=== PATIENT | female | born 1980 | race American Indian/Alaskan Native ===

== ENCOUNTER 2017-10-11 10:58 | Emergency (ER) | payer SELFPAY ==
[2017-10-11 12:04] VITALS: BP 124/74
[2017-10-11] MEDS ORDERED: MOTRIN PO ONE (15:04)
--- NOTE | 2017-10-11 15:06 | Emergency Department Report ---
Blank Doc - Documentation Documentation: Patient is a 36-year-old female who is presenting with 3 weeks of headache. Patient states the headache is only on the right side near the faith and radiates to the ear. Patient denies any light sensitivity and nausea vomiting to Bhavya congestion at this time. Patient states headaches are worse when she wakes up in the morning. Patient had a CT head done to establish a baseline patient was giv medicines for pain.
[2017-10-11 16:54] LABS: Bacteria,Urine 1+ /HPF (Negative); Bilirubin,Urine NEG (Negative); Blood,Urine NEG (Negative); Color,Urine Yellow (Yellow); Mucus,Urine 1+ /HPF; Protein,Urine <15 mg/dL mg/dL (Negative)
[2017-10-11 16:56] LABS: HCG Qualitative,Urine Negative (Negative)
--- NOTE | 2017-10-11 18:19 | Cat Scan Report ---
FINAL REPORT EXAM: CT HEAD/BRAIN WO CON HISTORY: headache TECHNIQUE: CT of the head was performed without intravenous contrast. PRIORS: None. FINDINGS: The ventricles are normal in shape and position. The ventricles are nondilated. No intracranial hemorrhage, mass, mass effect, midline shift or evidence of acute ischemic infarct. The basilar cisterns are patent. The paranasal sinuses are clear. The extracranial soft tissues demonstrate no abnormality. The calvarium is intact. The orbits are intact. The mastoid air cells are clear. IMPRESSION: No acute intracranial abnormality.
--- NOTE | 2017-10-11 19:01 | Emergency Department Report ---
ED Headache HPI - General Chief Complaint: Headache Stated Complaint: HEADACHE Time Seen by Provider: 10/11/17 15:03 - History of Present Illness Initial Comments: This is a 36-year-old female nontoxic, well nourished in appearance, no acute signs of distress presents to the ED with c/o of acute on chronic intermittent headache 3 weeks. Patient describes headache on the right side temporal region that radiates towards her ear. Patient denies any trauma to the region. Patient stated that darkness makes headache subside and weakness makes it worse. Patient stated that the headache is subsided with taking Excedrin over- the-count. Patient denies thunderclap headache. Patient stated headache mostly occurs when she wakes up and is relieved throughout the day. Denies any visual changes or blurry vision. Patient denies any stiff neck, fever, chills, chest pain, shortness of breathe, numbness, tingling, abdominal pain. Patient denies any allergies or significant past medical history. Timing/Duration: other (3 weeks) Quality: mild, achy Head Injury Location: temporal Recent Head Trauma: no recent headache/trauma, frequent headaches Associated Symptoms: denies: confusion, fatigue, facial pain, fever/chills, flushing, loss of consciousness, nausea/vomiting, nasal congestion, nasal drainage, numbness in legs/feet, rash, seizures, sinus infection, stiff neck, vision changes, weakness Allergies/Adverse Reactions: Allergies No Known Allergies Allergy (Unverified 10/31/13 09:05) Home Medications: Ambulatory Orders HYDROcodone/APAP 5-325 [[place] 5/325 mg] 1 each PO Q6HR PRN #20 tablet 10/31/13 Ibuprofen [Motrin] 600 mg PO Q8H PRN #60 tablet 10/31/13 Amoxicillin [Trimox CAP] 1,000 mg PO Q8H #60 capsule 09/17/14 Ibuprofen [Motrin 600 MG tab] 600 mg PO Q8H PRN #30 tablet 09/17/14 Neomycin Crawford/Colist/Hc/Thonzon [Cortisporin-Tc Ear Susp 0.33/0.3/1/0.05%] 4 drop AU QID #1 bottle 09/17/14 Butalb/Acetamin/Caff 50-325-40 [Fioricet] 1 tab PO Q6HR PRN #20 tab 10/11/17 ED Review of Systems ROS: Stated complaint: HEADACHE Other details as noted in HPI Constitutional: denies: chills, fever Eyes: denies: eye pain, eye discharge, vision change ENT: denies: ear pain, throat pain Respiratory: denies: cough, shortness of breath, wheezing Cardiovascular: denies: chest pain, palpitations Endocrine: no symptoms reported Gastrointestinal: denies: abdominal pain, nausea, diarrhea Genitourinary: denies: urgency, dysuria, discharge Musculoskeletal: denies: back pain, joint swelling, arthralgia Skin: denies: rash, lesions Neurological: headache. denies: weakness, paresthesias Psychiatric: denies: anxiety, depression Hematological/Lymphatic: denies: easy bleeding, easy bruising ED Past Medical Hx - Past Medical History Previous Medical History?: No - Surgical History Past Surgical History?: Yes Additional Surgical History: tubal ligation - Social History Smoking Status: Never Smoker Substance Use Type: None - Medications Home Medications: Home Medications Medication Instructions Recorded Confirmed Last Taken Type HYDROcodone/APAP 5-325 [[place] 1 each PO Q6HR PRN #20 tablet 10/31/13 Unknown Rx 5/325 mg] Ibuprofen [Motrin] 600 mg PO Q8H PRN #60 tablet 10/31/13 Unknown Rx Amoxicillin [Trimox CAP] 1,000 mg PO Q8H #60 capsule 09/17/14 Unknown Rx Ibuprofen [Motrin 600 MG tab] 600 mg PO Q8H PRN #30 tablet 09/17/14 Unknown Rx Neomycin Crawford/Colist/Hc/Thonzon 4 drop AU QID #1 bottle 09/17/14 Unknown Rx [Cortisporin-Tc Ear Susp 0.33/0.3/1/0.05%] Butalb/Acetamin/Caff 50-325-40 1 tab PO Q6HR PRN #20 tab 10/11/17 Unknown Rx [Fioricet] ED Physical Exam - General Limitations: No Limitations General appearance: alert, in no apparent distress - Head Head exam: Present: atraumatic, normocephalic - Eye Eye exam: Present: normal appearance, PERRL, EOMI Pupils: Present: normal accommodation - ENT ENT exam: Present: normal exam, normal orophraynx, mucous membranes moist, TM's normal bilaterally, normal external ear exam - Neck Neck exam: Present: normal inspection, full ROM. Absent: tenderness, meningismus, lymphadenopathy, thyromegaly - Respiratory Respiratory exam: Present: normal lung sounds bilaterally. Absent: respiratory distress, wheezes, rales, rhonchi, stridor, chest wall tenderness, accessory muscle use, decreased breath sounds, prolonged expiratory - Cardiovascular Cardiovascular Exam: Present: regular rate, normal rhythm, normal heart sounds. Absent: bradycardia, tachycardia, irregular rhythm, systolic murmur, diastolic murmur, rubs, gallop - GI/Abdominal GI/Abdominal exam: Present: soft, normal bowel sounds. Absent: distended, tenderness, guarding, rebound, rigid, diminished bowel sounds - Rectal Rectal exam: Present: deferred - Extremities Exam Extremities exam: Present: normal inspection, full ROM, normal capillary refill. Absent: tenderness, pedal edema, joint swelling, calf tenderness - Back Exam Back exam: Present: normal inspection, full ROM. Absent: tenderness, CVA tenderness (R), CVA tenderness (L), muscle spasm, paraspinal tenderness, vertebral tenderness, rash noted - Neurological Exam Neurological exam: Present: alert, oriented X3, CN II-XII intact, normal gait, reflexes normal - Expanded Neurological Exam Expanded Patient oriented to: Present: person, place, time Cranial nerves: EOM's Intact: Normal, Gag Reflex: Normal, Tongue Deviation: Normal, Nystagmus: Normal, Facial Sensation: Normal, Facial Palsy with Forehead Movement: Normal, Facial Palsy without Forehead Movement: Normal Cerebellar function: Finger to Nose: Normal, Heel to Tyler: Normal, Romberg: Normal Upper motor neuron: Raul Neglect: Normal, Pronator Drift: Normal, Babinski Sign : Normal, Sensory Extinction: Normal Sensory exam: Upper Extremity Light Touch: Normal, Upper Extremity Pin Prick: Normal, Upper Extremity Temperature: Normal, UE 2 Point Discrimination: Normal, Lower Extremity Light Touch: Normal, Lower Extremity Pin Prick: Normal, Lower Extremity Temperature: Normal, LE 2 Point Discrimination: Normal Motor strength exam: RUE: 5, LUE: 5, RLE: 5, LLE: 5 DTR: bicep (R): 2+, bicep (L): 2+, tricep (R): 2+, tricep (L): 2+, knee (R): 2+ , knee (L): 2+, ankle (R): 2+, ankle (L): 2+ Best Eye Response (Ghent): (4) open spontaneously Best Motor Response (Terry): (6) obeys commands Best Verbal Response ([place]): (5) oriented Terry Total: 15 - Psychiatric Psychiatric exam: Present: normal affect, normal mood - Skin Skin exam: Present: warm, dry, intact, normal color. Absent: rash ED Course Vital Signs 10/11/17 10/11/17 12:00 15:15 Temperature 98.9 F Pulse Rate 72 Respiratory 16 18 Rate Blood Pressure 124/74 O2 Sat by Pulse 99 Oximetry - Reevaluation(s) Reevaluation #1: 10/11/17 19:03 Patient is speaking in full sentences with no signs of distress noted. - Consultations Consultation #1: 10/11/17 19:03 Patient has been consulted with Dr. Mai about patient history, physical exam , and labs and examined and screened patient and agrees to ED plan of care and discharge plan of care. ED Medical Decision Making - Medical Decision Making This is a 36-year-old female that presents with headache intermittent. Patient is stable and was examined by me and Dr. Mai. CT of head/brain obtained and dictated by radiologist within normal limits. Patient is notified of ct results with no questions noted by the patient. Patient received Motrin in the ED which persisted symptoms has improvement subsided. Upon examination patient is neurologically stable. Patient is discharged with Fioricet. Patient was instructed and referred to Follow-up with a neurologist doctor in 3-5 days or if symptoms worsen and continue return to emergency room as soon as possible. At time of discharge, the patient does not seem toxic or ill in appearance. No acute signs of distress noted. Patient agrees to discharge treatment plan of care. No further questions noted by the patient. Critical care attestation.: If time is entered above; I have spent that time in minutes in the direct care of this critically ill patient, excluding procedure time. ED Disposition Clinical Impression: Headache Qualifiers: Headache type: unspecified Headache chronicity pattern: episodic headache Intractability: not intractable Qualified Code(s): R51 - Headache Disposition: DC-01 TO HOME OR SELFCARE Is pt being admited?: No Does the pt Need Aspirin: No Condition: Stable Instructions: Acute Headache (ED), Butalbital/Aspirin/Caffeine (By mouth) Additional Instructions: Follow-up with a neurologist doctor in 3-5 days or if symptoms worsen and continue return to emergency room as soon as possible. Prescriptions: Butalb/Acetamin/Caff 50-325-40 [Fioricet] 1 tab PO Q6HR PRN #20 tab PRN Reason: Headache Referrals: PRIMARY CARE, [Primary Care Provider] - 3-5 Days [facility] MD [Staff Physician] - 3-5 Days [facility] [Outside] - 3-5 Days [facility] [Outside] - 3-5 Days Forms: Work/School Release Form(ED)
== END 2017-10-11 19:14 | disposition home or self-care (01) ==
LOC: ED 10:58
DX: R51 Headache (principal); G89.29 Other chronic pain; Z98.51 Tubal ligation status
CPT/HCPCS: 70450; 81001; 81025

== ENCOUNTER 2020-04-17 09:17 | Emergency (ER) | payer SELFPAY ==
[2020-04-17 09:24] VITALS: BP 116/71
--- NOTE | 2020-04-17 10:46 | Emergency Department Report ---
ED ENT HPI - General Chief complaint: Earache Stated complaint: EAR INFECTION BOTH Time Seen by Provider: 04/17/20 10:29 Source: patient Mode of arrival: Ambulatory Limitations: No Limitations - History of Present Illness Initial comments: 39-year-old -[place] female presents to the emergency room complaining of left ear pain x3 days patient reports she is usually followed by [facility] on [facility] but they did not have any appointments available. Patient reports she has a past medical history of ear infections. She curre ntly takes only vitamins and has no known drug allergies. Onset/Timin -: days(s) Location: L ear Severity: moderate Quality: stabbing, sharp Consistency: constant Improves with: none Worsens with: none - Related Data Previous Rx's Medication Instructions Recorded Last Taken Type HYDROcodone/APAP 5-325 [[place] 1 each PO Q6HR PRN #20 tablet 10/31/13 Unknown Rx 5/325 mg] Ibuprofen [Motrin] 600 mg PO Q8H PRN #60 tablet 10/31/13 Unknown Rx Amoxicillin [Trimox CAP] 1,000 mg PO Q8H #60 capsule 09/17/14 Unknown Rx Neomycin Crawford/Colist/Hc/Thonzon 4 drop AU QID #1 bottle 09/17/14 Unknown Rx [Cortisporin-Tc Ear Susp 0.33/0.3/1/0.05%] Butalb/Acetamin/Caff 50-325-40 1 tab PO Q6HR PRN #20 tab 10/11/17 Unknown Rx [Fioricet] Amoxicillin [Amoxicillin TAB] 875 mg PO BID 7 Days #14 tablet 04/17/20 Unknown Rx Ibuprofen [Motrin 600 MG tab] 600 mg PO Q8H PRN #30 tablet 04/17/20 Unknown Rx Neomyc/Colist/Hydrocort/Thonzn 1 drop QID #1 bottle 04/17/20 Unknown Rx [Cortisporin-Tc Ear Suspension] Allergies Allergy/AdvReac Type Severity Reaction Status Date / Time No Known Allergies Allergy Unverified 10/31/13 09:05 ED Dental HPI - General Chief complaint: Earache Stated complaint: EAR INFECTION BOTH Time Seen by Provider: 04/17/20 10:29 Source: patient Mode of arrival: Ambulatory Limitations: No Limitations - Related Data Previous Rx's Medication Instructions Recorded Last Taken Type HYDROcodone/APAP 5-325 [[place] 1 each PO Q6HR PRN #20 tablet 10/31/13 Unknown Rx 5/325 mg] Ibuprofen [Motrin] 600 mg PO Q8H PRN #60 tablet 10/31/13 Unknown Rx Amoxicillin [Trimox CAP] 1,000 mg PO Q8H #60 capsule 09/17/14 Unknown Rx Neomycin Crawford/Colist/Hc/Thonzon 4 drop AU QID #1 bottle 09/17/14 Unknown Rx [Cortisporin-Tc Ear Susp 0.33/0.3/1/0.05%] Butalb/Acetamin/Caff 50-325-40 1 tab PO Q6HR PRN #20 tab 10/11/17 Unknown Rx [Fioricet] Amoxicillin [Amoxicillin TAB] 875 mg PO BID 7 Days #14 tablet 04/17/20 Unknown Rx Ibuprofen [Motrin 600 MG tab] 600 mg PO Q8H PRN #30 tablet 04/17/20 Unknown Rx Neomyc/Colist/Hydrocort/Thonzn 1 drop QID #1 bottle 04/17/20 Unknown Rx [Cortisporin-Tc Ear Suspension] Allergies Allergy/AdvReac Type Severity Reaction Status Date / Time No Known Allergies Allergy Unverified 10/31/13 09:05 ED Review of Systems ROS: Stated complaint: EAR INFECTION BOTH Other details as noted in HPI Comment: All other systems reviewed and negative ED Past Medical Hx - Past Medical History Previous Medical History?: No - Surgical History Past Surgical History?: Yes Additional Surgical History: tubal ligation - Social History Smoking Status: Never Smoker Substance Use Type: None - Medications Home Medications: Home Medications Medication Instructions Recorded Confirmed Last Taken Type HYDROcodone/APAP 5-325 [[place] 1 each PO Q6HR PRN #20 tablet 10/31/13 Unknown Rx 5/325 mg] Ibuprofen [Motrin] 600 mg PO Q8H PRN #60 tablet 10/31/13 Unknown Rx Amoxicillin [Trimox CAP] 1,000 mg PO Q8H #60 capsule 09/17/14 Unknown Rx Neomycin Crawford/Colist/Hc/Thonzon 4 drop AU QID #1 bottle 09/17/14 Unknown Rx [Cortisporin-Tc Ear Susp 0.33/0.3/1/0.05%] Butalb/Acetamin/Caff 50-325-40 1 tab PO Q6HR PRN #20 tab 10/11/17 Unknown Rx [Fioricet] Amoxicillin [Amoxicillin TAB] 875 mg PO BID 7 Days #14 tablet 04/17/20 Unknown Rx Ibuprofen [Motrin 600 MG tab] 600 mg PO Q8H PRN #30 tablet 04/17/20 Unknown Rx Neomyc/Colist/Hydrocort/Thonzn 1 drop QID #1 bottle 04/17/20 Unknown Rx [Cortisporin-Tc Ear Suspension] ED Physical Exam - General Limitations: No Limitations General appearance: alert, in no apparent distress - Head Head exam: Present: atraumatic, normocephalic - Eye Eye exam: Present: normal appearance - Expanded ENT Exam Expanded TM/Canal exam: Erythema: Left TM, Loss of Landmarks: Left TM, Canal Discharge: Left TM, Canal Tenderness: Left TM - Back Exam Back exam: Present: normal inspection - Neurological Exam Neurological exam: Present: alert, oriented X3, normal gait - Psychiatric Psychiatric exam: Present: normal affect, normal mood - Skin Skin exam: Present: warm, dry, intact, normal color. Absent: rash ED Course Vital Signs 04/17/20 09:23 Temperature 98.1 F Pulse Rate 80 Respiratory 16 Rate Blood Pressure 116/71 [Right] O2 Sat by Pulse 98 Oximetry ED Medical Decision Making - Medical Decision Making 39-year-old -[place] female presents to the emergency room complaining of left ear pain x3 days patient reports she is usually followed by [facility] on [facility] but they did not have any appointments available. Patient reports she has a past medical history of ear infections. She currently takes only vitamins and has no known drug allergies. Patient has a left otitis externa and media will place on amoxicillin and Cortisporin eardrops patient can take ibuprofen or Tylenol for pain management. Critical care attestation.: If time is entered above; I have spent that time in minutes in the direct care of this critically ill patient, excluding procedure time. ED Disposition Clinical Impression: Left otitis media Qualifiers: Otitis media type: unspecified Qualified Code(s): H66.92 - Otitis media, unspecified, left ear Left otitis externa Qualifiers: Otitis externa type: unspecified type Chronicity: acute Qualified Code(s): H60.502 - Unspecified acute noninfective otitis externa, left ear Disposition: DC-01 TO HOME OR SELFCARE Is pt being admited?: No Does the pt Need Aspirin: No Condition: Stable Instructions: Otitis Media (ED), Otitis Externa (ED) Additional Instructions: Complete antibiotics as prescribed. Take pain medication as needed follow-up with the ear nose and throat provider. Prescriptions: Amoxicillin [Amoxicillin TAB] 875 mg PO BID 7 Days #14 tablet Neomyc/Colist/Hydrocort/Thonzn [Cortisporin-Tc Ear Suspension] 1 drop QID #1 bottle Ibuprofen [Motrin 600 MG tab] 600 mg PO Q8H PRN #30 tablet PRN Reason: Pain Referrals: PRIMARY CARE,MD [Primary Care Provider] - 3-5 Days [facility] [Provider Group] - 3-5 Days [facility] [Provider Group] - 3-5 Days [facility] [Provider Group] - 3-5 Days
== END 2020-04-17 11:01 | disposition home or self-care (01) ==
LOC: ED 09:17
DX: H66.92 Otitis media, unspecified, left ear (principal); H60.92 Unspecified otitis externa, left ear; Z98.51 Tubal ligation status; Z79.1 Long term (current) use of non-steroidal anti-inflammatories (NSAID); Z79.2 Long term (current) use of antibiotics; Z79.899 Other long term (current) drug therapy
CPT/HCPCS: 99282

== ENCOUNTER 2021-03-12 19:38 | Emergency (ER) | payer SELFPAY ==
[2021-03-12 23:31] VITALS: BP 146/92
--- NOTE | 2021-03-12 23:55 | Emergency Department Report ---
Chief Complaint: Skin Rash Stated Complaint: BODY RASH Time Seen by Provider: 03/12/21 23:51 - HPI History of Present Illness: 40-year-old -[place]onegas[place] female presents to the emergency room complaining of a rash that she has had for 2 days. Patient states she has taken Benadryl which she reports has not really helped. Patient reports that the rash itches and is located on her upper extremities. Patient also comes in complain of a slight headache and nausea no vomiting did report diarrhea. Has not been vaccinated and has not been Covid tested. Patient recently traveled. Patient has not taken anything for her symptoms. - Exam Vital Signs: Vital Signs 03/12/21 22:53 Temperature 98.2 F Pulse Rate 59 L Respiratory 18 Rate Blood Pressure 146/92 O2 Sat by Pulse 100 Oximetry Physical Exam: General: Awake, appropriately interactive, no acute distress. Neck: Supple. Full range of motion intact. Cardiovascular: Normal peripheral perfusion. Pulmonary: No respiratory distress. Patient is speaking normally without use of accessory muscles. Skin: Small erythematous lesions upper extremities and left shoulder no blistering no weeping. Neurological: No facial asymmetry. Speech is clear. Follows commands. Patient is alert and oriented. Musculoskeletal: Full range of motion, no crepitus. Able to bear weight and ambulate without difficulty. Distal neurovascular and motor/sensory function is intact. Psych: Cooperative. Appropriate mood and affect. MSE screening note: Focused history and physical exam performed. Due to findings the following was ordered: 40-year-old -[place] female presents to the emergency room complaining of a rash that she has had for 2 days. Patient states she has taken Benadryl which she reports has not really helped. Patient reports that the rash itches and is located on her upper extremities. Patient also comes in complain of a slight headache and nausea no vomiting did report diarrhea. Has not been vaccinated and has not been Covid tested. Patient recently traveled. Patient has not taken anything for her symptoms. Discussed with patient she can take Tylenol or ibuprofen for headache. Rash she can use [id number] hydrocortisone continue with Benadryl follow-up with your primary care provider. Patient has all stable vital signs nontoxic in appearance stable to be discharged home with follow-up outpatient. Encouraged to get Covid vaccination as well as Covid testing ED Disposition for MSE Is pt being admited?: No Does the pt Need Aspirin: No Condition: Stable Referrals: [facility] [Provider Group] - 3-5 Days Time of Disposition: 23:55
== END 2021-03-13 00:06 | disposition left against medical advice (07) ==
LOC: ED 19:38
DX: R21 Rash and other nonspecific skin eruption (principal); L29.9 Pruritus, unspecified; Z53.21 Procedure and treatment not carried out due to patient leaving prior to being seen by health care provider

== ENCOUNTER 2021-12-19 21:22 | Emergency (ER) | payer OTHER ==
--- NOTE | 2021-12-19 22:17 | XRay Report ---
RIGHT FOOT 3 VIEW(S) INDICATION / CLINICAL INFORMATION: INJURY COMPARISON: None available. FINDINGS: BONES / JOINT(S): Acute mildly displaced comminuted intra-articular fracture base of fourth toe proxi mal phalanx extending into MTP joint Moderate degenerative arthrosis first MTP joint with hallux valg us and osseous bunion SOFT TISSUES: No significant abnormality. ADDITIONAL FINDINGS: None. IMPRESSION: 1. Intra-articular fracture base of fourth toe proximal phalanx Signer Name: Rafa Valente MD Signed: 12/19/2021 10:13 PM Workstation Name: [id number]
--- NOTE | 2021-12-20 02:18 | Emergency Department Report ---
ED Extremity Problem HPI - General Chief complaint: Extremity Injury, Lower Stated complaint: RT FOOT PAIN Source: patient Mode of arrival: Ambulatory Limitations: No Limitations - History of Present Illness Initial comments: 41-year-old female complaining of right toe pain after slipping and falling over her toys. Patient states that for toe is hurting currently a 8 out of 10. Patient is able to wiggle toe but with pain. Patient is ambulating with pain. Mild swelling noted to the fourth toe. No distracting injury noted. Patient denies any fever. Patient is alert and oriented x3. No acute distress noted. No ill ill appearance noted. MD Complaint: extremity pain -: This morning Location: right History of Same: No Severity scale (0 -10): 8 Quality: aching Consistency: intermittent Improves with: nothing - Related Data Previous Rx's Medication Instructions Recorded Last Taken Type HYDROcodone/APAP 5-325 [Clare 1 each PO Q6HR PRN #20 tablet 10/31/13 Unknown Rx 5/325 mg] Ibuprofen [Motrin] 600 mg PO Q8H PRN #60 tablet 10/31/13 Unknown Rx Amoxicillin [Trimox CAP] 1,000 mg PO Q8H #60 capsule 09/17/14 Unknown Rx Neomycin Crawford/Colist/Hc/Thonzon 4 drop AU QID #1 bottle 09/17/14 Unknown Rx [Cortisporin-Tc Ear Susp 0.33/0.3/1/0.05%] Butalb/Acetamin/Caff 50-325-40 1 tab PO Q6HR PRN #20 tab 10/11/17 Unknown Rx [Fioricet] Amoxicillin [Amoxicillin TAB] 875 mg PO BID 7 Days #14 tablet 04/17/20 Unknown Rx Ibuprofen [Motrin 600 MG tab] 600 mg PO Q8H PRN #30 tablet 04/17/20 Unknown Rx Neomyc/Colist/Hydrocort/Thonzn 1 drop QID #1 bottle 04/17/20 Unknown Rx [Cortisporin-Tc Ear Suspension] Ibuprofen [Motrin] 800 mg PO Q8HR PRN 15 Days #30 12/20/21 Unknown Rx tablet traMADoL [Ultram] 50 mg PO Q6HR PRN 3 Days #12 tablet 12/20/21 Unknown Rx Allergies Allergy/AdvReac Type Severity Reaction Status Date / Time No Known Allergies Allergy Unverified 10/31/13 09:05 ED Review of Systems ROS: Stated complaint: RT FOOT PAIN Other details as noted in HPI Constitutional: denies: chills, fever Eyes: denies: eye pain, eye discharge, vision change ENT: denies: ear pain, throat pain Respiratory: denies: cough, shortness of breath, wheezing Cardiovascular: denies: chest pain, palpitations Endocrine: no symptoms reported Gastrointestinal: denies: abdominal pain, nausea, diarrhea Genitourinary: denies: urgency, dysuria, discharge Musculoskeletal: denies: back pain, joint swelling, arthralgia Skin: denies: rash, lesions Neurological: denies: headache, weakness, paresthesias Psychiatric: denies: anxiety, depression Hematological/Lymphatic: denies: easy bleeding, easy bruising ED Past Medical Hx - Surgical History Additional Surgical History: tubal ligation - Social History Smoking Status: Never Smoker Substance Use Type: None - Medications Home Medications: Home Medications Medication Instructions Recorded Confirmed Last Taken Type HYDROcodone/APAP 5-325 [Clare 1 each PO Q6HR PRN #20 tablet 10/31/13 Unknown Rx 5/325 mg] Ibuprofen [Motrin] 600 mg PO Q8H PRN #60 tablet 10/31/13 Unknown Rx Amoxicillin [Trimox CAP] 1,000 mg PO Q8H #60 capsule 09/17/14 Unknown Rx Neomycin Crawford/Colist/Hc/Thonzon 4 drop AU QID #1 bottle 09/17/14 Unknown Rx [Cortisporin-Tc Ear Susp 0.33/0.3/1/0.05%] Butalb/Acetamin/Caff 50-325-40 1 tab PO Q6HR PRN #20 tab 10/11/17 Unknown Rx [Fioricet] Amoxicillin [Amoxicillin TAB] 875 mg PO BID 7 Days #14 tablet 04/17/20 Unknown Rx Ibuprofen [Motrin 600 MG tab] 600 mg PO Q8H PRN #30 tablet 04/17/20 Unknown Rx Neomyc/Colist/Hydrocort/Thonzn 1 drop QID #1 bottle 04/17/20 Unknown Rx [Cortisporin-Tc Ear Suspension] Ibuprofen [Motrin] 800 mg PO Q8HR PRN 15 Days #30 12/20/21 Unknown Rx tablet traMADoL [Ultram] 50 mg PO Q6HR PRN 3 Days #12 tablet 12/20/21 Unknown Rx ED Physical Exam - General Limitations: No Limitations General appearance: alert, in no apparent distress - Head Head exam: Present: atraumatic, normocephalic - Eye Eye exam: Present: normal appearance - ENT ENT exam: Present: mucous membranes moist - Neck Neck exam: Present: normal inspection - Respiratory Respiratory exam: Present: normal lung sounds bilaterally. Absent: respiratory distress - Cardiovascular Cardiovascular Exam: Present: regular rate, normal rhythm. Absent: systolic murmur, diastolic murmur, rubs, gallop - GI/Abdominal GI/Abdominal exam: Present: soft, normal bowel sounds - Extremities Exam Extremities exam: Present: normal inspection - Expanded Lower Extremity Exam Right Foot/Toe exam: Present: swelling - Back Exam Back exam: Present: normal inspection - Neurological Exam Neurological exam: Present: alert, oriented X3 - Psychiatric Psychiatric exam: Present: normal affect, normal mood - Skin Skin exam: Present: warm, dry, intact, normal color. Absent: rash ED Course Vital Signs 12/19/21 12/20/21 21:30 02:32 Temperature 98.0 F 97.8 F Pulse Rate 75 66 Respiratory 18 14 Rate Blood Pressure 118/88 Blood Pressure 126/79 [Left] O2 Sat by Pulse 96 100 Oximetry ED Medical Decision Making - Radiology Data [facility] [address] [place] [address] XRay Report Signed Patient: JESSICA NARAYAN MR#: [id number] : 1980 Acct:[id number] Age/Sex: 41 / F ADM Date: 12/19/21 Loc: ED Attending Dr: Ordering Physician: EMORY LIANG MD Date of Service: 12/19/21 Procedure(s): XR foot 3+V RT Accession Number(s): [id number] cc: EMORY LIANG MD Fluoro Time In Minutes: RIGHT FOOT 3 VIEW(S) INDICATION / CLINICAL INFORMATION: INJURY COMPARISON: None available. FINDINGS: BONES / JOINT(S): Acute mildly displaced comminuted intra-articular fracture base of fourth toe proximal phalanx extending into MTP joint Moderate degenerative arthrosis first MTP joint with hallux valgus and osseous bunion SOFT TISSUES: No significant abnormality. ADDITIONAL FINDINGS: None. IMPRESSION: 1. Intra-articular fracture base of fourth toe proximal phalanx Signer Name: Rafa Valente MD Signed: 12/19/2021 10:13 PM Workstation Name: [id number] Transcribed By: TL Dictated By: Rafa Valente MD Electronically Authenticated By: Rafa Valente MD Signed Date/Time: 12/19/21 2213 - Medical Decision Making 41-year-old female complaining of right toe pain after slipping and falling over her toys. Patient states that for toe is hurting currently a 6 out of 10. Patient is able to wiggle toe but with pain. Patient is ambulating with pain. Mild swelling noted to the fourth toe. No distracting injury noted. Patient denies any fever. Patient is alert and oriented x3. No acute distress noted. No ill ill appearance noted. Three-view x-ray of the right foot show Intra- articular fracture base of fourth toe proximal phalanx . Patient placed in orthopedic shoe and is to follow-up with orthopedic. Rechecked the patient is resting quietly quietly and comfortable and feeling better. I discussed the results of diagnostic study, my clinical impression and the plan for further treatment with the patient. Patient agrees with plan and discharge at this present time. All question addressed. I have given the patient instruction regarding a diagnosis ,expectation ,follow- up and return precaution. I explained to the patient that emergent condition may arise and to return to the ED for new worsen and any new persisting condition. I have explained the importance of following up with the primary care physician or referral physician listed below has instructed. The patient verbalized understanding of discharge instruction. Critical care attestation.: If time is entered above; I have spent that time in minutes in the direct care of this critically ill patient, excluding procedure time. ED Disposition Clinical Impression: Toe fracture, right Qualifiers: Encounter type: initial encounter Toe: unspecified toe Fracture type: closed Fracture alignment: displaced Qualified Code(s): S92.911A - Unspecified fracture of right toe(s), initial encounter for closed fracture Disposition: 01 HOME / SELF CARE / HOMELESS Is pt being admited?: No Does the pt Need Aspirin: No Condition: Stable Instructions: Toe Fracture, [id number] Additional Instructions: Take medication as prescribed Follow-up with orthopedic Return to the ED for any worsening symptom Prescriptions: Ibuprofen [Motrin] 800 mg PO Q8HR PRN 15 Days #30 tablet PRN Reason: Pain, Mild (1-3) traMADoL [Ultram] 50 mg PO Q6HR PRN 3 Days #12 tablet PRN Reason: Pain Referrals: SHAYLA MATTHEWS MD [Staff Physician] - 3-5 Days Forms: Work/School Release Form(ED) Time of Disposition: 02:35
[2021-12-20 02:33] VITALS: BP 126/79
== END 2021-12-20 03:00 | disposition home or self-care (01) ==
LOC: ED 21:22
DX: S92.911A Unspecified fracture of right toe(s), initial encounter for closed fracture (principal); W01.0XXA Fall on same level from slipping, tripping and stumbling without subsequent striking against object, initial encounter; Y93.89 Activity, other specified; Y92.89 Other specified places as the place of occurrence of the external cause; Y99.8 Other external cause status
CPT/HCPCS: 99283